=== PATIENT | female | born 1965 | race African-American/Black ===

== ENCOUNTER 2018-01-11 10:43 | Emergency (ER) | payer OTHER ==
[~2018-01-11] VITALS: Ht 149.9 cm; Wt 49.4 kg
[2018-01-11] MEDS ORDERED: VASOTEC20 MG (10:46)
[2018-01-11] MEDS ORDERED: ENALAPRIL MALEA10 MG (10:47)
== END 2018-01-11 11:52 | disposition home or self-care (01) ==
LOC: ER 10:43
DX: M26.622 Arthralgia of left temporomandibular joint (principal)